=== PATIENT | female | born 1995 | race Caucasian/White ===

== ENCOUNTER 2023-10-29 23:07 | Emergency (ER) | payer OTHER, SELFPAY ==
[2023-10-29 23:10] VITALS: BP 133/85
--- NOTE | 2023-10-30 01:50 | ED.GENMED ---
History of Present Illness
General
Chief Complaint: Headache
Source: patient
Exam Limitations: none
Time Seen by Provider: 10/30/23 01:39
Travel History
Have you had any contact with someone who has COVID-19?: No
Do you have any symptoms of coronavirus? Fever > 100 degrees, chills, cough, shortness of breath, sore throat, loss of taste or smell, muscle aches, or headache?: No
History of Present Illness
History of Present Illness:
This is a 28 year old female that comes in with c/o hitting her head. States that she was at work as she is a [employer]. States that she was given a client a shower and she came up and her the back of her head on a Handrail. States that this happened
around 4pm. States that she has some nausea and a headache. Denies any fever, chills, chest pain, SOB, abd pain, vomiting, diarrhea, dizziness, urinary burning.
Past History
Past History
ED Past Medical History: IDDM and Other (Right leg abscess drained, Pilonidal cyst)
ED Past Surgical History: Gynecological (D &C) and Other
Social History
Tobacco: Non-smoker
Alcohol: Occasional
Drug: None
Personal: Single
Living: with family
Employment: Employed
Family History
Family History: Other
Review of Systems
Review of Systems
All Other Systems: ROS reviewed and negative except as documented in HPI and ROS
Constitutional: Reports no symptoms; Denies fever or chills
EENT: Reports no symptoms
Respiratory: Reports no symptoms; Denies cough or trouble breathing
Cardiac: Reports no symptoms; Denies chest pain
ABD/GI: Reports nausea; Denies abdominal pain, vomiting or diarrhea
: Reports no symptoms; Denies dysuria, frequency or urgency
Musculoskeletal: Reports no symptoms
Skin: Reports no symptoms
Neurological: Reports headache; Denies dizzy
Psychiatric: Reports no symptoms
Phy Exam
General Physical Exam
General Presentation: well appearing and no apparent distress
General age: appears stated age
General Skin: warm and dry
General Habitus: normal
General Mental: alert
General Hydration: appears well hydrated
ENT Exam
ENT Exam: TM's normal, pharynx normal and neck supple
Eye Exam
Eye Exam: EOMI
Cardiovascular Exam
Cardiovascular Exam: regular rate/rhythm, no edema, no murmur and normal peripheral pulses
Pulmonary Exam
Pulmonary Exam: lungs clear, no respiratory distress, no rales, chest non tender, no crackles, no rhonchi, no wheezing and no cough
Gastrointestinal Exam
Gastrointestinal Exam: normal bowel sounds, non tender, soft, no organomegaly, no pulsatile mass and non distended
Musculoskeletal Exam
Musculoskeletal Exam: full ROM, no edema and other (Negative cervical neck tenderness)
Skin Exam
Skin Exam: normal color, warm/dry, no rash and no petechia
Psychiatric Exam
Psychiatric Exam: normal mood/affect
Course
Orders/Labs/Results
Orders:
Orders
10/30/23 01:50
Acetaminophen [Tylenol] 1,000 mg PO NOW STA
Vital Signs
Initial and Last Documented VS:
Initial Vital Signs
Temp Pulse Resp BP Pulse Ox
97.8 F 90 20 133/85 100
10/29/23 23:10 10/29/23 23:10 10/29/23 23:10 10/29/23 23:10 10/29/23 23:10
Last Documented Vital Signs
Temp Pulse Resp BP Pulse Ox
97.8 F 90 20 133/85 100
10/29/23 23:10 10/29/23 23:10 10/29/23 23:10 10/29/23 23:10 10/29/23 23:10
MDM/Problems Addressed
Differential Diagnosis Includes:
Contusion, Minor head injury
MDM/Problems Addressed:
This is a 28 year old female that come in with c/o hitting her head on a shower rail when giving a patient a shower around 4pm. States that she has a headache and was worried about a concussion.
Explained to patient that the diagnosis of Concussion is made by Symptoms. Patient is alert and oriented. States that she had a headache buy no vomiting. Explained that this is most likely a contusion. Patient can use Tylenol for headache pain.
Return with vomiting more then twice or headache not relieved by Tylenol. Offered patient a not for work but she refused as it was explained to her that it is best to get back to your normal routine. Patient to follow up with the PCP. Return with
vomiting more then twice or headache not relieved by Tylenol.
Chronic conditions affecting care:
NA
Acute Exacerbation and/or Progression of Chronic Illness:
NA
*Pulse Oximetry
Patient hypoxic: no
*EKG
Interpreted by ED Provider?: NA
Rate: EKG- N/A
*Maturity Checker Interpretation
Rate: Maturity Checker- N/A
*Critical Care Note
Total Time (30-74mins, 75-104mins- exclusive of procedures): Not Applicable
ED Attending Note
-
Portions of this chart may have been created with voice recognition software.� Occasional wrong word or��sound alike� substitutions may have occurred due to the inherent limitations of voice recognition software.
Discharge Plan
Departure
Patient Disposition: Home (Routine Discharge)
Date of Disposition: 10/30/23
Time of Disposition: 02:02
Patient with high blood pressure during this ER visit?: Yes
Condition: Good
Covid-19: Not Applicable
Discharge Problem:
Contusion, Headache
Instructions: Contusion (DC), Headache, Adult (DC), BLOOD PRESSURE
Prescriptions:
No Action
multivitamin with folic acid [Tab-A-Raya] 1 TABLET tablet
1 tab PO DAILY
Insulin Pump [Patient's Own Insulin Pump:] 1 UNITS Pump.Resvr
0 ea SC .CONTINUOUS
Patient Comments:
uses admelog in pump
acetaminophen 325 mg Tablet
650 mg PO Q4HPRN PRN (Reason: mild pain) Qty: 0 0RF
labetalol 200 mg Tablet
200 mg PO BID Qty: 60 0RF
ibuprofen 600 mg Tablet
600 mg PO Q6HPRN PRN (Reason: moderate pain/cramps) Qty: 0 0RF
cephalexin 500 mg capsule
500 mg PO Q12H Qty: 14 0RF
Activity Restrictions/Additional Instructions:
As discussed, this is most likely a contusion. You may use Ice to the area that is sore. Tylenol for any headache pain. Follow up with the Family doctor for recheck. IF YO HAVE VOMITING MORE THEN TWICE, HEADACHE NOT RELIEVED BY TYLENOL OR YOU HAVE
ANY OTHER CONCERNS PLEASE RETURN TO THE EMERGENCY ROOM.
Interventions
Interventions:
*Risk Screen - Suicide Last Done: 10/30/23 01:56
*General Assessment Last Done: 10/30/23 01:56
*Neglect/Abuse Screening Last Done: 10/30/23 01:56
ED- Fall Risk Assessment Last Done: 10/30/23 01:56
*ED COVID-19 Vaccine History Last Done: 10/30/23 01:56
ED- Neurological Assessment Last Done: 10/30/23 01:56
Discharge Date and Time
Print Language: BELARUSIAN
[2023-10-30] MEDS: TYLENOL 1000 MG PO (01:54)
[2023-10-30] MEDS: ZOFRAN ODT (ORALLY DISINTEGRATING) 4 MG PO (02:14)
== END 2023-10-30 02:20 | disposition home or self-care (01) ==
LOC: EMR 23:07
PROVIDERS: EMERGENCY PHYSICIAN Student in an Organized Health Care Education/Training Program; FAMILY PHYSICIAN Family Medicine
DX: S00.93XA Contusion of unspecified part of head, initial encounter (principal); W22.8XXA Striking against or struck by other objects, initial encounter; E11.9 Type 2 diabetes mellitus without complications
CPT/HCPCS: 99282

== ENCOUNTER → 2023-10-31 14:18 | Outpatient (REF) | payer OTHER, SELFPAY | LOC: RAD 14:18 | PROVIDERS: ATTENDING PHYSICIAN Physician Assistant; FAMILY PHYSICIAN Family Medicine | DX: S09.90XA Unspecified injury of head, initial encounter (principal) | CPT/HCPCS: 70450 ==

== ENCOUNTER 2024-01-29 09:54 | Emergency (ER) | payer OTHER, SELFPAY ==
[2024-01-29 10:09] VITALS: BP 127/90
[2024-01-29 10:33] VITALS: BMI 17.4
--- NOTE | 2024-01-29 10:58 | ED.MUSCINJ ---
HPI-Injury
General
Chief Complaint: Soft Tissue Injury
Time Seen by Provider: 01/29/24 10:34
History of Present Illness-Injury
Initial Injury comments:
28-year-old female with history of diabetes on insulin pump presenting for right wrist pain. Patient reports she was putting her son to sleep last night and her son rolled over on her wrist. She is now having pain with any type of movement.
Reports some swelling. Denies numbness or tingling. Denies any additional injuries. Denies any additional acute medical complaints
Past History
Past History
ED Past Medical History: IDDM and Other (Right leg abscess drained, Pilonidal cyst)
ED Past Surgical History: Gynecological (D &C) and Other
Social History
Tobacco: Non-smoker
Alcohol: Occasional
Drug: None
Personal: Single
Living: with family
Employment: Employed
Family History
Family History: Other
Phy Exam
Physical Exam
Physical Exam:
General: Well-appearing, no clinical signs of dehydration, nontoxic and in no acute distress
HEENT: protecting airway
Neck: appears supple
CV: Normal heart rate
Resp: No accessory muscle use, no increased work of breathing
Abd: Nondistended
Extremities: No significant swelling or deformity to the right wrist. Generalized tenderness to the wrist joint. Range of motion grossly intact. Sensation and pulses intact.
Neuro: alert, no focal neurologic deficit
: deferred
Rectal: deferred
Psych: Normal affect
Skin: Intact
Injury Course
Orders/Labs/Results
Orders:
Orders
01/29/24 10:53
CR Wrist - Right Min 3 Views Urgent
Comment:
Reason For Exam: pain, minimal swelling
01/29/24 10:59
Ibuprofen [Motrin] 600 mg PO NOW STA
MDM/Problems Addressed
MDM/Problems Addressed:
28-year-old female presenting with right wrist pain. Vital signs within normal limits.
Patient well-appearing, no acute distress. Benign examination of the wrist without significant deformity or swelling. Range of motion grossly intact. Suspect mild sprain. No neurovascular compromise. Will screen with x-ray imaging. Ibuprofen
administered for pain
11:55- X-ray without fracture or malalignment. Feel stable for discharge with continued outpatient supportive therapy. Will provide Ryan bandage. Return precautions discussed and patient verbalized understanding
*Critical Care Note
Total Time (30-74mins, 75-104mins- exclusive of procedures): Not Applicable
ED Attending Note
-
Portions of this chart may have been created with voice recognition software.� Occasional wrong word or��sound alike� substitutions may have occurred due to the inherent limitations of voice recognition software.
Discharge Plan
Departure
Prescriptions:
No Action
multivitamin with folic acid [Tab-A-Raya] 1 TABLET tablet
1 tab PO DAILY
Insulin Pump [Patient's Own Insulin Pump:] 1 UNITS Pump.Resvr
0 ea SC .CONTINUOUS
Patient Comments:
uses admelog in pump
acetaminophen 325 mg Tablet
650 mg PO Q4HPRN PRN (Reason: mild pain) Qty: 0 0RF
labetalol 200 mg Tablet
200 mg PO BID Qty: 60 0RF
ibuprofen 600 mg Tablet
600 mg PO Q6HPRN PRN (Reason: moderate pain/cramps) Qty: 0 0RF
cephalexin 500 mg capsule
500 mg PO Q12H Qty: 14 0RF
Referrals:
Lori Mathew MD [Family Provider] -
Interventions
Interventions:
*General Assessment Last Done: 01/29/24 10:33
ED- Fall Risk Assessment Last Done: 01/29/24 10:33
*ED COVID-19 Vaccine History Last Done: 01/29/24 10:33
ED-Musculoskeletal Assessment Last Done: 01/29/24 10:33
ED-Skin Assessment Last Done: 01/29/24 10:33
Discharge Date and Time
Print Language: SINHALA
[2024-01-29] MEDS: MOTRIN 600 MG PO (11:25)
== END 2024-01-29 12:05 | disposition home or self-care (01) ==
LOC: EMR 09:54
PROVIDERS: EMERGENCY PHYSICIAN Student in an Organized Health Care Education/Training Program; FAMILY PHYSICIAN Family Medicine
DX: M25.531 Pain in right wrist (principal); X50.1XXA Overexertion from prolonged static or awkward postures, initial encounter; E11.9 Type 2 diabetes mellitus without complications; Z96.41 Presence of insulin pump (external) (internal); Z79.4 Long term (current) use of insulin
CPT/HCPCS: 99283; 73110

== ENCOUNTER 2024-07-04 06:31 | Day surgery (SDC) | payer OTHER, SELFPAY ==
[2024-06-19 11:06] VITALS: BMI 25.8
[2024-06-19 11:59] LABS: Hematocrit 43.5 % (37.0-47.0); Hemoglobin 14.5 g/dL (12.0-16.0); Mean Corp Hgb Conc. 33.3 g/dL (33.0-37.0); Mean Corpuscular Volume 89.9 fL (81.0-99.0); Mean Platelet Volume 9.9 fL (7.4-10.4); Platelet Count 319 10^3/uL (130-400); Red Blood Cell Count 4.84 10^6/uL (4.20-5.40); White Blood Cell Count 13.5 10^3/uL (4.8-10.8)
[2024-06-19 12:00] LABS: HCG, Urine Qualitative Screen Negative
[2024-07-04] VITALS (14 sets, daily range): BP systolic 86–138; BP diastolic 48–85; BMI 25.8
[2024-07-04 09:55] LABS: Glucose - Point of Care 95 mg/dl (70-99)
[2024-07-04] MEDS: TYLENOL 1000 MG PO (10:00)
[2024-07-04] MEDS: NORMOSOL-R/PLASMALYTE-A 1000 IV (10:00)
[2024-07-04 12:39] LABS: Glucose - Point of Care 113 mg/dl (70-99)
[2024-07-04] MEDS: ZOFRAN 4 MG IV (12:44)
[2024-07-04] MEDS: DILAUDID 0.5 MG IV (12:50)
[2024-07-04] MEDS: COMPAZINE 5 MG IV (13:56)
[2024-07-04 14:04] LABS: Glucose - Point of Care 129 mg/dl (70-99)
== END 2024-07-04 15:11 | disposition home or self-care (01) ==
LOC: SDS 06:31
PROVIDERS: ATTENDING PHYSICIAN Otolaryngology; FAMILY PHYSICIAN Family Medicine
PROC: 09BM8ZZ Excision of Nasal Septum, Via Natural or Artificial Opening Endoscopic (ICD-10-PCS; 2024-07-04)
PROC: 09TL8ZZ Resection of Nasal Turbinate, Via Natural or Artificial Opening Endoscopic (ICD-10-PCS; 2024-07-04)
DX: J34.2 Deviated nasal septum (principal); J35.1 Hypertrophy of tonsils; J34.3 Hypertrophy of nasal turbinates; R51.9 Headache, unspecified
CPT/HCPCS: 30520; 30140; 36415; 81025; 82962; 85027; 87070; 87147

== ENCOUNTER 2025-01-15 23:06 | Emergency (ER) | payer OTHER, SELFPAY ==
[2025-01-15 23:12] VITALS: BP 146/94
--- NOTE | 2025-01-16 00:57 | ED.MUSCINJ ---
HPI-Injury
General
Chief Complaint: Musculo-Skeletal Complaint
Source: patient
Exam Limitations: none
Time Seen by Provider: 01/16/25 00:44
History of Present Illness-Injury
Is this injury a work related problem?: Yes
Is pt an associate of [facility]/[place]?: No
Initial Injury comments:
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
Past History
Past History
ED Past Medical History: IDDM
ED Past Surgical History: Gynecological (D &C) and Other
Social History
Tobacco: Non-smoker
Alcohol: Occasional
Drug: None
Personal: Single
Living: with family
Employment: Employed
Family History
Family History: Other
Review of Systems
Review of Systems
All Other Systems: Not applicable
Musculoskeletal: Reports joint pain, joint swelling, muscle stiffness and edema
Phy Exam
Physical Exam
Physical Exam:
Physical Exam
General: no apparent distress, not acutely ill
Neck: No overt signs of trauma
Lungs: no acute respiratory distress.
Neuro: alert and oriented. no focal neurological deficits
Skin: no rash
Psychiatric: well kept. interactive and cooperative
Extremities: Mild to moderate pain and swelling of the left midfoot to the base of the toes
Injury Course
Orders/Labs/Results
Orders:
Orders
01/15/25 23:18
Foot, Left 3 View [CR Foot - Left Min 3 Views] Urgent
Comment:
Reason For Exam: Injury, wheelchair ran over foot
01/16/25 00:56
Splints/Slings/Crut- Treatment ONCE
Oxycodone/Acetaminophen [Percocet 5/325] 1 tablet PO NOW STA
MDM/Problems Addressed
Differential Diagnosis Includes:
Fracture contusion strain
MDM/Problems Addressed:
Foot pain
Chronic conditions affecting care: DM
Acute Exacerbation and/or Progression of Chronic Illness: DM
*Radiology
Radiology exam reviewed: preliminary read by ED provider
*Pulse Oximetry
SaO2: 100
Oxygen Mode of Delivery: Room air
Patient hypoxic: no
*Critical Care Note
Total Time (30-74mins, 75-104mins- exclusive of procedures): Not Applicable
Update Note
Update Note:
No obvious fracture seen will place in a orthotic shoe follow-up podiatry as needed
ED Attending Note
-
Portions of this chart may have been created with voice recognition software.� Occasional wrong word or��sound alike� substitutions may have occurred due to the inherent limitations of voice recognition software.
Discharge Plan
Departure
Patient Disposition: Home (Routine Discharge)
Date of Disposition: 01/16/25
Time of Disposition: 00:59
Patient with high blood pressure during this ER visit?: No
Condition: Good
Discharge Problem:
Contusion of foot
Instructions: Using Cold for Pain, Contusion (DC)
Prescriptions:
No Action
multivitamin with folic acid [Tab-A-Raya] 1 TABLET tablet
1 tab PO DAILY
insulin lispro [Admelog U-100 Insulin lispro] 100 unit/mL solution
0 unit SC ORDERED RATE
L norgest/e.estradiol-e.estrad [Seasonique] 0.15 mg-30 mcg (84)/10 mcg (7) Tablets,Dose Pack,3 Month
1 tab PO DAILY
dapagliflozin propanediol [Farxiga] 5 mg tablet
5 mg PO DAILY
acetaminophen [Tylenol Ex Str Arthritis Pain] 500 mg Tablet
1,000 mg PO Q6H PRN (Reason: pain)
Referrals:
UNKNOWN - PT DOES,NOT KNOW [Family Provider]
propt [Other]
Shira Escobar, DPM [Active, Podiatry] - Follow up in 2-3 days
Stand Alone Forms: Return to Work
Activity Restrictions/Additional Instructions:
Rest ice, Tylenol or ibuprofen for pain, follow-up with podiatry and your Workmen's Comp. provider
Interventions
Interventions:
*Risk Screen - Suicide Last Done: 01/15/25 23:12
*General Assessment Last Done: 01/15/25 23:12
*Neglect/Abuse Screening Last Done: 01/15/25 23:12
*ED- Fall Risk Assessment Last Done: 01/15/25 23:12
*ED COVID-19 Vaccine History Last Done: 01/15/25 23:12
Discharge Date and Time
Print Language: TAMAZIGHT
[2025-01-16 01:00] VITALS: BP 123/76; BMI 26.0
[2025-01-16] MEDS: PERCOCET 5/325 1 TABLET PO (01:07)
== END 2025-01-16 01:36 | disposition home or self-care (01) ==
LOC: EMR 23:06
PROVIDERS: EMERGENCY PHYSICIAN Emergency Medicine; FAMILY PHYSICIAN Family Medicine
DX: S90.32XA Contusion of left foot, initial encounter (principal); W23.0XXA Caught, crushed, jammed, or pinched between moving objects, initial encounter; Y93.89 Activity, other specified; Y92.89 Other specified places as the place of occurrence of the external cause; Y99.0 Civilian activity done for income or pay; E11.9 Type 2 diabetes mellitus without complications; Z79.4 Long term (current) use of insulin
CPT/HCPCS: 99283; 73630

== ENCOUNTER 2025-03-02 18:15 | Emergency (ER) | payer OTHER, SELFPAY ==
[2025-03-02 18:18] VITALS: BP 145/101
[2025-03-02 19:12] VITALS: BP 144/77
--- NOTE | 2025-03-02 19:16 | ED.GENMED ---
History of Present Illness
<Susan Houser PA-C - Last Filed: 03/02/25 22:49>
General
Chief Complaint: Facial Problem
Source: patient
Exam Limitations: none
Time Seen by Provider: 03/02/25 18:53
History of Present Illness
History of Present Illness:
29yoF with a history of insulin-dependent type 2 diabetes presenting for evaluation of nasal pain. Symptoms began 2 days ago with upper lip swelling. She states it looked like she had lip injections. She was at [place] and thought she may be
having an allergic reaction so she went to urgent care and was advised to take antihistamines as needed. She has been taking Zyrtec with some improvement but she is not having more pain to her L nare. No fevers or chills.
Past History
<Susan Houser PA-C - Last Filed: 03/02/25 22:49>
Past History
ED Past Medical History: IDDM
ED Past Surgical History: Gynecological (D &C) and Other
Social History
Tobacco: Non-smoker
Alcohol: Occasional
Drug: None
Personal: Single
Living: with family
Employment: Employed
Family History
Family History: Other
Phy Exam
<Susan Houser PA-C - Last Filed: 03/02/25 22:49>
General Physical Exam
General Presentation: well appearing and no apparent distress
General Skin: warm and dry
General Habitus: normal
General Mental: alert
ENT Exam
ENT Exam: pharynx normal, normocephalic and other (There is what appears to be a pimple/abscess head in the lower L nare with palpable induration extending to the upper lip. Mild swelling in the area. No evidence of dental abscess.)
Pulmonary Exam
Pulmonary Exam: no respiratory distress
Neurological Exam
Neurological Exam: alert
Ej Coma Scale
Eye Opening: Spontaneous
Verbal Response: Oriented
Motor Response: Obeys Commands
GCS Total Score: 15
Skin Exam
Skin Exam: normal color and warm/dry
Psychiatric Exam
Psychiatric Exam: normal mood/affect
Course
<Susan Houser PA-C - Last Filed: 03/02/25 22:49>
Orders/Labs/Results
Orders:
Orders
03/02/25 19:40
Cephalexin Monohydrate [Keflex] 500 mg PO NOW STA
Vital Signs
Initial and Last Documented VS:
Initial Vital Signs
Temp Pulse Resp BP Pulse Ox
98.6 F 91 18 145/101 100
03/02/25 18:18 03/02/25 18:18 03/02/25 18:18 03/02/25 18:18 03/02/25 18:18
Last Documented Vital Signs
Temp Pulse Resp BP Pulse Ox
98.6 F 91 18 144/77 98
03/02/25 18:18 03/02/25 18:18 03/02/25 18:18 03/02/25 19:12 03/02/25 19:18
<Michel Vasques DO - Last Filed: 03/02/25 20:16>
Orders/Labs/Results
Orders:
Orders
03/02/25 19:40
Cephalexin Monohydrate [Keflex] 500 mg PO NOW STA
Vital Signs
Initial and Last Documented VS:
Initial Vital Signs
Temp Pulse Resp BP Pulse Ox
98.6 F 91 18 145/101 100
03/02/25 18:18 03/02/25 18:18 03/02/25 18:18 03/02/25 18:18 03/02/25 18:18
Last Documented Vital Signs
Temp Pulse Resp BP Pulse Ox
98.6 F 91 18 144/77 98
03/02/25 18:18 03/02/25 18:18 03/02/25 18:18 03/02/25 19:12 03/02/25 19:18
Procedures
<Susan Houser PA-C - Last Filed: 03/02/25 22:49>
Incision/Drainage/Joint Aspiration
Left Nose:
Preparation: cleaned with Betadine
Type of procedure: incise
Nature of site: abscess
Description of abscess: less than 3cm
Fluid description: purulent and bloody
Treatment: left open for drainage and antibiotics started
<Susan Houser PA-C - Last Filed: 03/02/25 22:49>
MDM/Problems Addressed
Differential Diagnosis Includes:
29yoF here with L facial swelling x 2 days. No fevers. Hx of IDDM. VSS. She is well appearing in no distress. There is evidence of a L nasal abscess on exam with induration extending to the upper lip. No evidence of dental infection or facial
cellulitis.
Case discussed with Dr. Núñez, control panel builder departure clerk who recommends attempted drainage and abx that provide staph coverage. 18G needle used for I&D and head of abscess removed with scant amount of purulent drainage. She was started on a course
of Keflex. Advised f/u with ENT and strict ED return precautions reviewed. She was discharged in stable condition.
<Susan Houser PA-C - Last Filed: 03/02/25 22:49>
*Pulse Oximetry
SaO2: 98
Oxygen Mode of Delivery: Room air
Patient hypoxic: no (100%)
*Critical Care Note
Total Time (30-74mins, 75-104mins- exclusive of procedures): Not Applicable
ED Attending Note
<Susan Houser PA-C - Last Filed: 03/02/25 22:49>
-
Portions of this chart may have been created with voice recognition software.� Occasional wrong word or��sound alike� substitutions may have occurred due to the inherent limitations of voice recognition software.
<Michel Vasques, DO - Last Filed: 03/02/25 20:16>
ED Attending Note
Patient seen and examined by attending physician: Yes
ED Attending Note:
I reviewed and agree with history and plan by Susan Houser PA-C. My exam revealed 22-year-old female afebrile no acute distress with small abscess/, comedone of left nare. Treat with Keflex and follow-up with ENT after unroofing.
Discharge Plan
Departure
Patient Disposition: Home (Routine Discharge)
Date of Disposition: 03/02/25
Time of Disposition: 19:41
Patient with high blood pressure during this ER visit?: Yes
Discharge Problem:
Abscess of nasal cavity
Instructions: Skin Abscess
Prescriptions:
New
cephalexin 500 mg capsule
500 mg PO Q6H 7 Days Qty: 27 0RF
No Action
multivitamin with folic acid [Tab-A-Raya] 1 TABLET tablet
1 tab PO DAILY
insulin lispro [Admelog U-100 Insulin lispro] 100 unit/mL solution
0 unit SC ORDERED RATE
L norgest/e.estradiol-e.estrad [Seasonique] 0.15 mg-30 mcg (84)/10 mcg (7) Tablets,Dose Pack,3 Month
1 tab PO DAILY
dapagliflozin propanediol [Farxiga] 5 mg tablet
5 mg PO DAILY
acetaminophen [Tylenol Ex Str Arthritis Pain] 500 mg Tablet
1,000 mg PO Q6H PRN (Reason: pain)
Referrals:
Lori Mathew MD [Family Provider, Family Practice]
Guru Núñez MD [Active, Otology]
Activity Restrictions/Additional Instructions:
Take antibiotics as prescribed. Apply warm compresses.
Please call ENT on Tuesday to schedule a follow-up appointment. Return to the ER with any worsening symptoms or fevers.
Interventions
Interventions:
*Risk Screen - Suicide Last Done: 03/02/25 18:18
*General Assessment Last Done: 03/02/25 18:18
*Neglect/Abuse Screening Last Done: 03/02/25 19:02
*ED- Fall Risk Assessment Last Done: 03/02/25 19:02
*ED COVID-19 Vaccine History Last Done: 03/02/25 19:02
*Nursing Disposition Last Done: 03/02/25 19:50
ED- Neurological Assessment Last Done: 03/02/25 19:02
ED-Skin Assessment Last Done: 03/02/25 19:02
Discharge Date and Time
Discharge Date/Time: 03/02/25 19:51
Print Language: BENGALI
[2025-03-02] MEDS: KEFLEX 500 MG PO (19:45)
== END 2025-03-02 19:51 | disposition home or self-care (01) ==
LOC: EMR 18:15
PROVIDERS: EMERGENCY PHYSICIAN Emergency Medicine; FAMILY PHYSICIAN Family Medicine
DX: J34.0 Abscess, furuncle and carbuncle of nose (principal); E11.9 Type 2 diabetes mellitus without complications; Z79.4 Long term (current) use of insulin
CPT/HCPCS: 10060; 99283

== ENCOUNTER 2025-03-03 11:22 | Emergency (ER) | payer OTHER, SELFPAY ==
[2025-03-03 11:26] VITALS: BP 141/99
--- NOTE | 2025-03-03 13:07 | EDRN ---
Pt states the person who saw her last night only able to get small amount of drainage from abscess in her nose. Pt states area was opened yesterday but closed again so she tried to drain area by pressing on upper lip under abscess and did have some
drainage. Pt took zyrtec yesterday am.
[2025-03-03 13:09] VITALS: BMI 27.9
[2025-03-03 13:13] VITALS: BP 133/79
--- NOTE | 2025-03-03 13:55 | ED.GENMED ---
History of Present Illness
General
Chief Complaint: Swelling
Source: patient
Exam Limitations: none
Time Seen by Provider: 03/03/25 12:50
Nursing documentation reviewed up to this point in time: agreed with
History of Present Illness
History of Present Illness:
29 y/o F with h/o IDDM
insulin pump
here for 2nd visit in 2 days for L nasal pain/swelling/abscess
pt says she has had raúl and swellin gin this region just inside her nostril
Past History
Past History
ED Past Medical History: IDDM
ED Past Surgical History: Gynecological (D &C) and Other
Social History
Tobacco: Non-smoker
Alcohol: Occasional
Drug: None
Personal: Single
Living: with family
Employment: Employed
Family History
Family History: Other
Course
Orders/Labs/Results
Orders:
Orders
03/03/25 14:44
Clindamycin HCl [Cleocin] 300 mg PO NOW STA
03/03/25 14:45
Oxycodone/Acetaminophen [Percocet 5/325] 1 tablet PO NOW STA
Vital Signs
Initial and Last Documented VS:
Initial Vital Signs
Temp Pulse Resp BP Pulse Ox
37.2 C 112 18 141/99 99
03/03/25 11:26 03/03/25 11:26 03/03/25 11:26 03/03/25 11:26 03/03/25 11:26
Last Documented Vital Signs
Temp Pulse Resp BP Pulse Ox
37.5 C 90 16 155/92 100
03/03/25 14:51 03/03/25 14:51 03/03/25 14:51 03/03/25 14:51 03/03/25 14:51
MDM/Problems Addressed
MDM/Problems Addressed:
29 y/o F
IDDM
here yesterday for intranasal abscess that feels worse today
no fever
started with URi sxs x a few days ago, cough improving but had nasla congestion and a honey crusted scab in nose
now with swelling minimally just outside the nare and tenderness with indruation
pt is requesting I&D
on exam i see the honey crusted lesion and really do not suspect i would get much out of the abscess that is inferior to it
but she was pretty insistent that it drained yesterday after leavnign here, sounds as if sh ehad it aspirated; she went home and experessed pus from it but feels it is a little more swollen
as expected not much came out of small inciision #11 blade to the area
blood only
BG 111 per her dexcom
no fever
hr improved
chapa witch her to clinda and murpiocin, i suspect she actually h as impetigo as initial cause for this eleison in the nose
*Pulse Oximetry
SaO2: 98
Oxygen Mode of Delivery: Room air
ED Attending Note
-
Portions of this chart may have been created with voice recognition software.� Occasional wrong word or��sound alike� substitutions may have occurred due to the inherent limitations of voice recognition software.
Discharge Plan
Departure
Patient Disposition: Home (Routine Discharge)
Date of Disposition: 03/03/25
Time of Disposition: 14:45
Patient with high blood pressure during this ER visit?: No
Condition: Fair
Covid-19: Not Applicable
Discharge Problem:
Impetigo, Abscess of nose
Instructions: Abscess incision and drainage - ED discharge instructions
Prescriptions:
New
clindamycin HCl [Cleocin HCl] 300 mg capsule
300 mg PO Q6H Qty: 28 0RF
mupirocin [Centany] 2 % ointment
1 applic topical BID 5 Days Qty: 15 0RF
No Action
multivitamin with folic acid [Tab-A-Raya] 1 TABLET tablet
1 tab PO DAILY
insulin lispro [Admelog U-100 Insulin lispro] 100 unit/mL solution
0 unit SC ORDERED RATE
L norgest/e.estradiol-e.estrad [Seasonique] 0.15 mg-30 mcg (84)/10 mcg (7) Tablets,Dose Pack,3 Month
1 tab PO DAILY
dapagliflozin propanediol [Farxiga] 5 mg tablet
5 mg PO DAILY
acetaminophen [Tylenol Ex Str Arthritis Pain] 500 mg Tablet
1,000 mg PO Q6H PRN (Reason: pain)
cephalexin 500 mg capsule
500 mg PO Q6H 7 Days Qty: 27 0RF
Referrals:
Lori Mathew MD [Family Provider, Family Practice]
Stand Alone Forms: Return to Work
Activity Restrictions/Additional Instructions:
It is important for you to apply warm compresses to inside your nose and just on the outside to help soften this area and help it heal. I believe that the underlying problem may have been impetigo, you should apply the nasal ointment twice a day
for 5 days. Also take clindamycin 4 times a day for 7 days. Stop the Keflex. Watch for worsening swelling, elevate the head of your bed little bit higher to avoid you being flat. Monitor your blood sugars. Return for fever, worsening facial
swelling or pain or any concerns
Interventions
Interventions:
*Risk Screen - Suicide Last Done: 03/03/25 11:26
*General Assessment Last Done: 03/03/25 13:09
*Neglect/Abuse Screening Last Done: 03/03/25 11:26
*ED- Fall Risk Assessment Last Done: 03/03/25 13:09
*ED COVID-19 Vaccine History Last Done: 03/03/25 13:09
*Nursing Disposition Last Done: 03/03/25 15:06
ED- Cardiac Assessment Last Done: 03/03/25 13:11
ED- Pulmonary Assessment Last Done: 03/03/25 13:11
ED-Skin Assessment Last Done: 03/03/25 13:11
Discharge Date and Time
Discharge Date/Time: 03/03/25 15:19
Print Language: PERUVIAN
[2025-03-03 14:51] VITALS: BP 155/92
[2025-03-03] MEDS: PERCOCET 5/325 1 TABLET PO (15:01)
[2025-03-03] MEDS: CLEOCIN 300 MG PO (15:01)
== END 2025-03-03 15:19 | disposition home or self-care (01) ==
LOC: EMR 11:22
PROVIDERS: EMERGENCY PHYSICIAN Student in an Organized Health Care Education/Training Program; FAMILY PHYSICIAN Family Medicine
DX: L01.00 Impetigo, unspecified (principal); J34.0 Abscess, furuncle and carbuncle of nose; E11.9 Type 2 diabetes mellitus without complications; Z79.4 Long term (current) use of insulin; Z96.41 Presence of insulin pump (external) (internal)
CPT/HCPCS: 99283; 30000